=== PATIENT | male | born 1945 | race Caucasian/White ===

== ENCOUNTER 2017-05-04 05:51 | Day surgery (SDC) | payer OTHER, BC ==
[2017-04-26 12:26] VITALS: BMI 26.6
[2017-05-04 06:31] VITALS: PULSE 70
[2017-05-04] MEDS ORDERED: LIDOCAINE HCL 2% (20ML MULTI-DOSE VIAL) NR ONE (06:58)
[2017-05-04] MEDS ORDERED: MIDAZOLAM HCL 2 MG/2 ML SINGLE DOSE VIAL ONE ×2 (07:15→07:38)
[2017-05-04] MEDS ORDERED: DEXAMETHASONE SOD PHOSPHATE 4 MG/1 ML VIAL ONE (07:39)
[2017-05-04] MEDS ORDERED: KETOROLAC TROMETHAMINE 30 MG/1 ML VIAL ONE (07:39)
[2017-05-04] MEDS ORDERED: PROPOFOL 20 ML ONE (07:42)
[2017-05-04] MEDS ORDERED: LIDOCAINE HCL/PF 2% SDV 5ML VIAL ONE (07:44)
[2017-05-04 08:23] VITALS: TEMP 97.5
[2017-05-04 08:42] VITALS: BP 120/86
--- NOTE | 2017-05-04 11:26 | OP ---
DATE OF OPERATION: 05/04/2017 PREOPERATIVE DIAGNOSIS: Right ring trigger-finger. POSTOPERATIVE DIAGNOSIS: Right ring trigger-finger. OPERATIVE PROCEDURE: Right ring trigger-finger release. SURGEON: Edilberto Fonseca MD ANESTHESIA: Local with sedation. COMPLICATIONS: None. ESTIMATED BLOOD LOSS: Minimal. INDICATIONS FOR PROCEDURE: The patient is a 72-year-old male with the above findings, indicated for operative treatment. The risks, benefits, and alternatives were again discussed with the patient at length. Proper informed consent was obtained. DESCRIPTION OF PROCEDURE: After proper identification of the patient and the correct operative site, the patient was brought to the operating room and placed supine on the operating room table. All bony prominences were well padded. Sedation was given by the anesthesiologist; local anesthesia was given with 2% lidocaine. Right upper extremity was prepped and draped in the usual sterile fashion. A well-padded tourniquet was placed with a sterile prep. Esmarch bandage used to exsanguinate the right upper extremity. A tourniquet was inflated to 250 mmHg. A longitudinal incision was made over A1 alena to the ring finger. Incision was taken sharply through the skin with blunt and sharp dissection through subcutaneous tissues. A1 alena was identified and divided longitudinally. Mild thickening and tendinosis of the superficialis tendon was noted. Frayed tendon was debrided. Patient was asked to flex and extend his finger, and no further triggering was noted. Wound was irrigated with saline and repaired with a 5-0 nylon suture. Sterile dressings were applied. Patient was sent to the recovery room in stable condition. He tolerated the procedure well. EDILBERTO FONSECA M.D. [id number]
== END 2017-05-04 08:47 | disposition home or self-care (01) ==
LOC: FASU 05:51
PROVIDERS: ATTEND Orthopaedic Surgery Hand Surgery
PROC: 0LN70ZZ Release Right Hand Tendon, Open Approach (ICD-10-PCS; principal; 2017-05-04 07:54)
DX: M65.341 Trigger finger, right ring finger (principal)

== ENCOUNTER 2021-10-08 04:46 | Day surgery (SDC) | payer OTHER, BC ==
[2021-10-06 13:31] VITALS: BMI 26.2
[2021-10-08 11:01] VITALS: TEMP 98.2
[2021-10-08 13:17] VITALS: BP 140/90; PULSE 65
== END 2021-10-08 13:46 | disposition home or self-care (01) ==
LOC: JASU-ENDO 04:46
PROVIDERS: ATTEND Internal Medicine Gastroenterology
PROC: 0DBM8ZX Excision of Descending Colon, Via Natural or Artificial Opening Endoscopic, Diagnostic (ICD-10-PCS; principal; 2021-10-08 12:30)
DX: Z12.11 Encounter for screening for malignant neoplasm of colon (principal); Z86.010 Personal history of colon polyps; K64.8 Other hemorrhoids; D12.4 Benign neoplasm of descending colon
CPT/HCPCS: 88305-TC